=== PATIENT | male | born 1950 | race Caucasian/White ===

== ENCOUNTER 2023-02-24 15:29 | Emergency (ER) | payer MEDICARE ==
[2023-02-24 15:52] LABS: BASOPHILS ABSOLUTE AUTO 0.08 K/uL (0.00-0.10); BASOPHILS PERCENT AUTO 0.6 % (0.1-1.3); EOSINOPHILS ABSOLUTE AUTO 0.44 K/uL (0.00-0.40); EOSINOPHILS PERCENT AUTO 3.5 % (0.0-5.4); HEMATOCRIT 46.9 % (38.4-49.7); HEMOGLOBIN 16.2 g/dL (12.9-16.9); IMMATURE GRAN ABSOLUTE AUTO 0.04 K/uL (0.00-0.23); IMMATURE GRAN PERCENT AUTO 0.3 % (0.0-0.7); LYMPHOCYTES ABSOLUTE AUTO 4.52 K/uL (0.8-3.3); MEAN CORPUSCULAR HEMOGLOBIN 30.8 pg (31.6-35.5); MEAN CORPUSCULAR HGB CONC 34.5 g/dL (31.6-35.5); MEAN CORPUSCULAR VOLUME 89.2 fL (81.4-99.0); MONOCYTES ABSOLUTE AUTO 0.97 K/uL (0.20-0.90); MONOCYTES PERCENT AUTO 7.7 % (3.3-12.6); NEUTROPHILS ABSOLUTE AUTO 6.51 K/uL (1.0-7.6); NEUTROPHILS PERCENT AUTO 51.9 % (40.0-78.1); PLATELET COUNT,PLT 298 K/uL (130-375); RED BLOOD CELL COUNT 5.26 M/uL (4.14-5.76); WHITE BLOOD CELL COUNT,WBC 12.6 K/uL (3.2-11.0)
[2023-02-24 16:11] LABS: BLOOD UREA NITROGEN,BUN 11 mg/dL (7-18); CALCIUM 8.7 mg/dL (8.5-10.1); CARBON DIOXIDE,CO2 21 mmol/L (21-32); CHLORIDE,CL 101 mmol/L (100-108); CREATININE 1.3 mg/dL (0.8-1.3); ESTIMATED GFR 59 mL/min (>60); GLUCOSE RANDOM 131 mg/dL (74-106); POTASSIUM,K 3.2 mmol/L (3.6-5.2); SODIUM,NA 136 mmol/L (140-148)
[2023-02-24 16:13] LABS: ANION GAP 17.2 mmol/L (5.0-14.0)
== END 2023-02-24 18:31 | disposition home or self-care (01) ==
LOC: JP.ED 15:29
DX: S42.212A Unspecified displaced fracture of surgical neck of left humerus, initial encounter for closed fracture (principal); I10 Essential (primary) hypertension; W11.XXXA Fall on and from ladder, initial encounter
CPT/HCPCS: 36415; 73030-26-LT; 73030-LT; 80048; 85025; 99283

== ENCOUNTER 2024-01-14 13:40 | Emergency (ER) | payer MEDICARE ==
[2024-01-14 14:53] LABS: BASE EXCESS VENOUS 0.9 mm/L; BASOPHILS ABSOLUTE AUTO 0.04 K/uL (0.00-0.10); BASOPHILS PERCENT AUTO 0.4 % (0.1-1.3); BICARBONATE,VENOUS 23.6 mmol/L; EOSINOPHILS ABSOLUTE AUTO 0.08 K/uL (0.00-0.40); EOSINOPHILS PERCENT AUTO 0.8 % (0.0-5.4); HEMATOCRIT 37.9 % (38.4-49.7); HEMOGLOBIN 13.2 g/dL (12.9-16.9); IMMATURE GRAN ABSOLUTE AUTO 0.03 K/uL (0.00-0.23); IMMATURE GRAN PERCENT AUTO 0.3 % (0.0-0.7); LYMPHOCYTES ABSOLUTE AUTO 1.64 K/uL (0.8-3.3); LYMPHOCYTES PERCENT AUTO 15.8 % (11.4-47.7); MEAN CORPUSCULAR HEMOGLOBIN 28.8 pg (31.6-35.5); MEAN CORPUSCULAR HGB CONC 34.8 g/dL (31.6-35.5); MEAN CORPUSCULAR VOLUME 82.8 fL (81.4-99.0); METHEMOGLOBIN 0.8 %; MONOCYTES ABSOLUTE AUTO 0.75 K/uL (0.20-0.90); MONOCYTES PERCENT AUTO 7.2 % (3.3-12.6); NEUTROPHILS ABSOLUTE AUTO 7.86 K/uL (1.0-7.6); NEUTROPHILS PERCENT AUTO 75.5 % (40.0-78.1); O2 SATURATION VENOUS 55.8; OXYHEMOGLOBIN 53.1 %; PCO2 VENOUS 33.1 mm/Hg; PH,VENOUS 7.467 (7.350-7.450); PLATELET COUNT,PLT 329 K/uL (130-375); RED BLOOD CELL COUNT 4.58 M/uL (4.14-5.76); TOTAL HEMOGLOBIN 13.7 g/dL (13.5-18.0); WHITE BLOOD CELL COUNT,WBC 10.4 K/uL (3.2-11.0)
[2024-01-14 14:55] LABS: PO2 VENOUS 29.1 mm/Hg
[2024-01-14 14:56] LABS: CORONAVIRUS COVID-19 NAA NEGATIVE (NEGATIVE); INFLUENZA A NAA NEGATIVE (NEGATIVE); INFLUENZA B NAA NEGATIVE (NEGATIVE); RESPIRATORY SYNCYTIAL VIR NAA NEGATIVE (NEGATIVE)
[2024-01-14] MEDS: Albuterol/Ipratropium 3.0-0.5 MG/3 ML Neb Soln NEB ONE (15:18)
[2024-01-14 15:25] LABS: A/G RATIO 0.8 (1.2-2.2); ALANINE AMINOTRANSFERASE,ALT 24 U/L (12-78); ALKALINE PHOSPHATASE 120 U/L (46-116); ASPARTATE AMNIOTRANSFERASE,AST 14 U/L (15-37); BILIRUBIN TOTAL 0.5 mg/dL (0.2-1.0); BLOOD UREA NITROGEN,BUN 12 mg/dL (7-18); CALCIUM 9.5 mg/dL (8.5-10.1); CARBON DIOXIDE,CO2 25 mmol/L (21-32); CHLORIDE,CL 105 mmol/L (100-108); EST CRCL DRUG DOSING (CG) 67.75 mL/min; ESTIMATED GFR 80 mL/min (>60); GLUCOSE RANDOM 106 mg/dL (74-106); POTASSIUM,K 3.9 mmol/L (3.6-5.2); PRO B-TYPE NATRIUR PEPT,BNPPRO 3172 pg/mL (5-125); SODIUM,NA 139 mmol/L (140-148)
[2024-01-14 15:32] LABS: ANION GAP 12.9 mmol/L (5.0-14.0)
[2024-01-14] MEDS ORDERED: Sodium Chloride 0.9% 500 ML IV ONE (16:25)
[2024-01-14] MEDS: Sodium Chloride 0.9% 100 ML IV SCH (17:03)
[2024-01-14] MEDS: Iopamidol 755 Mg/ML 100 ML Bottle IV SCH (17:03)
[2024-01-14] MEDS: Furosemide 20 MG/2 ML VIAL IVPUSH ONE (18:22)
== END 2024-01-14 19:10 | disposition home or self-care (01) ==
LOC: JP.ED 13:40
DX: J43.9 Emphysema, unspecified (principal); R91.8 Other nonspecific abnormal finding of lung field; I10 Essential (primary) hypertension; F17.210 Nicotine dependence, cigarettes, uncomplicated; Z79.899 Other long term (current) drug therapy
CPT/HCPCS: 0241U; 36415; 71045; 71275; 80053; 82803; 83605; 83880; 84145; 84484; 85025; 85379; 93005; 96374; 99285; J1940; J3490; Q9967; J7620

== ENCOUNTER 2024-02-05 16:13 | Emergency (ER) | payer MEDICARE ==
[~2024-02-05 16:13] MED LIST: Apixaban 5 MG Tab PO SCH
[2024-02-05 16:56] LABS: BASOPHILS ABSOLUTE AUTO 0.04 K/uL (0.00-0.10); BASOPHILS PERCENT AUTO 0.4 % (0.1-1.3); EOSINOPHILS ABSOLUTE AUTO 0.12 K/uL (0.00-0.40); EOSINOPHILS PERCENT AUTO 1.2 % (0.0-5.4); HEMOGLOBIN 13.5 g/dL (12.9-16.9); IMMATURE GRAN ABSOLUTE AUTO 0.05 K/uL (0.00-0.23); IMMATURE GRAN PERCENT AUTO 0.5 % (0.0-0.7); LYMPHOCYTES PERCENT AUTO 16.4 % (11.4-47.7); MEAN CORPUSCULAR HEMOGLOBIN 28.9 pg (31.6-35.5); MEAN CORPUSCULAR HGB CONC 33.8 g/dL (31.6-35.5); MEAN CORPUSCULAR VOLUME 85.7 fL (81.4-99.0); MONOCYTES PERCENT AUTO 8.2 % (3.3-12.6); NEUTROPHILS ABSOLUTE AUTO 7.17 K/uL (1.0-7.6); NEUTROPHILS PERCENT AUTO 73.3 % (40.0-78.1); PLATELET COUNT,PLT 279 K/uL (130-375); RED BLOOD CELL COUNT 4.67 M/uL (4.14-5.76); WHITE BLOOD CELL COUNT,WBC 9.8 K/uL (3.2-11.0)
[2024-02-05 17:10] LABS: CALCIUM 9.5 mg/dL (8.5-10.1); CREATININE 1.1 mg/dL (0.8-1.3); EST CRCL DRUG DOSING (CG) 59.59 mL/min; POTASSIUM,K 3.6 mmol/L (3.6-5.2)
[2024-02-05] MEDS: Sodium Chloride 0.9% 500 ML IV ONE ×2 (17:18→17:48)
[2024-02-05] MEDS: Sodium Chloride 0.9% 10 ML Syringe FLUSH PRN (17:18)
[2024-02-05] MEDS: Diltiazem 25 MG/5 ML SDV IVPUSH ONE ×2 (17:19→17:48)
[2024-02-05 17:23] LABS: ANION GAP 14.6 mmol/L (5.0-14.0)
[2024-02-05] MEDS: Diltiazem 120 MG Cap.CD PO ONE (18:13)
[2024-02-05] MEDS: Apixaban 5 MG Tab PO ONE (18:50)
[2024-02-05] MEDS: Apixaban 5 MG Tab ONE (18:51)
== END 2024-02-05 19:01 | disposition home or self-care (01) ==
LOC: JP.ED 16:13
DX: I48.91 Unspecified atrial fibrillation (principal); I10 Essential (primary) hypertension; F17.210 Nicotine dependence, cigarettes, uncomplicated; Z79.899 Other long term (current) drug therapy
CPT/HCPCS: 36415; 80048; 85025; 96361; 96374; 99284; 99285-25; A9270-GY; J3490; J7040

== ENCOUNTER 2024-02-11 13:19 | Emergency (ER) | payer MEDICARE ==
[2024-02-11 13:56] LABS: BASOPHILS PERCENT AUTO 0.1 % (0.1-1.3); HEMOGLOBIN 15.3 g/dL (12.9-16.9); IMMATURE GRAN ABSOLUTE AUTO 0.12 K/uL (0.00-0.23); IMMATURE GRAN PERCENT AUTO 0.6 % (0.0-0.7); LYMPHOCYTES ABSOLUTE AUTO 0.66 K/uL (0.8-3.3); LYMPHOCYTES PERCENT AUTO 3.4 % (11.4-47.7); MEAN CORPUSCULAR VOLUME 85.2 fL (81.4-99.0); MONOCYTES ABSOLUTE AUTO 1.15 K/uL (0.20-0.90); MONOCYTES PERCENT AUTO 5.9 % (3.3-12.6); NEUTROPHILS ABSOLUTE AUTO 17.49 K/uL (1.0-7.6); PLATELET COUNT,PLT 305 K/uL (130-375); RED BLOOD CELL COUNT 5.28 M/uL (4.14-5.76); WHITE BLOOD CELL COUNT,WBC 19.4 K/uL (3.2-11.0)
[2024-02-11 13:57] LABS: BASOPHILS ABSOLUTE AUTO 0.02 K/uL (0.00-0.10)
[2024-02-11 14:03] LABS: INR 1.1; PROTHROMBIN TIME 11.6 sec (9.2-10.6)
[2024-02-11] MEDS: Diltiazem 25 MG/5 ML SDV IVPUSH ONE (14:07)
[2024-02-11 14:18] LABS: A/G RATIO 0.8 (1.2-2.2); ALANINE AMINOTRANSFERASE,ALT 58 U/L (12-78); ALBUMIN 3.5 g/dL (3.4-5.0); ALKALINE PHOSPHATASE 150 U/L (46-116); ASPARTATE AMNIOTRANSFERASE,AST 30 U/L (15-37); BILIRUBIN TOTAL 0.8 mg/dL (0.2-1.0); BLOOD UREA NITROGEN,BUN 19 mg/dL (7-18); CALCIUM 9.7 mg/dL (8.5-10.1); CARBON DIOXIDE,CO2 26 mmol/L (21-32); CHLORIDE,CL 101 mmol/L (100-108); CREATININE 1.1 mg/dL (0.8-1.3); EST CRCL DRUG DOSING (CG) 59.59 mL/min; ESTIMATED GFR 72 mL/min (>60); GLUCOSE RANDOM 139 mg/dL (74-106); MAGNESIUM 2.1 mg/dL (1.8-2.4); POTASSIUM,K 3.5 mmol/L (3.6-5.2); PRO B-TYPE NATRIUR PEPT,BNPPRO 1621 pg/mL (5-125); PROTEIN TOTAL,TP 7.7 g/dL (6.4-8.2); SODIUM,NA 138 mmol/L (140-148); TROPONIN I HIGH SENSITIVITY 14.3 pg/mL (<=60.3)
[2024-02-11 14:19] LABS: ANION GAP 14.5 mmol/L (5.0-14.0)
[2024-02-11 14:29] LABS: APPEARANCE,URINE CLOUDY (CLEAR); BILIRUBIN,URINE NEGATIVE (NEGATIVE); COLOR,URINE YELLOW (YELLOW); GLUCOSE,URINE NEGATIVE (NEGATIVE); KETONES,URINE NEGATIVE (NEGATIVE); LEUKOCYTE ESTERASE,URINE NEGATIVE (NEGATIVE); NITRITE,URINE NEGATIVE (NEGATIVE); OCCULT BLOOD,URINE NEGATIVE (NEGATIVE); PROTEIN,URINE NEGATIVE (NEGATIVE)
[2024-02-11 14:37] LABS: BACTERIA,URINE FEW; EPITHELIAL CELLS,URINE RARE; MUCUS,URINE RARE; RBC,URINE 0-5 (0-5); WBC,URINE 0-5 (0-5)
[2024-02-11 14:38] LABS: AMORPHOUS SEDIMENT,URINE MODERATE; AMPHETAMINES SCREEN, URINE NEGATIVE (NEGATIVE); BARBITURATE SCREEN,URINE NEGATIVE (NEGATIVE); BENZODIAZEPINES SCREEN,URINE NEGATIVE (NEGATIVE); METHADONE SCREEN, URINE NEGATIVE (NEGATIVE); METHAMPHETAMINES SCREEN, URINE NEGATIVE (NEGATIVE); OXYCODONE SCREEN,URINE NEGATIVE (NEGATIVE); PROPOXYPHENE SCREEN,URINE NEGATIVE (NEGATIVE); THC SCREEN,URINE 50 NG/ML NEGATIVE (NEGATIVE)
[2024-02-11] MEDS: Iopamidol 612 MG/ML 100 ML Bottle IV SCH (15:38)
[2024-02-11] MEDS: Sodium Chloride 0.9% 60 ML IV SCH (15:38)
== END 2024-02-11 17:06 | disposition home or self-care (01) ==
LOC: JP.ED 13:19
DX: I48.20 Chronic atrial fibrillation, unspecified (principal); R22.2 Localized swelling, mass and lump, trunk; I10 Essential (primary) hypertension; Z79.899 Other long term (current) drug therapy
CPT/HCPCS: 36415; 71260; 80053; 80305; 80307; 81001; 83605; 83735; 83880; 84443; 84484; 85025; 85379; 85610; 93005; 93010; 96374; 99284; 99285; J3490; Q9967

== ENCOUNTER 2024-02-25 11:09 | Emergency (ER) | payer MEDICARE ==
[2024-02-25 11:34] LABS: BASOPHILS ABSOLUTE AUTO 0.04 K/uL (0.00-0.10); BASOPHILS PERCENT AUTO 0.3 % (0.1-1.3); EOSINOPHILS ABSOLUTE AUTO 0.05 K/uL (0.00-0.40); EOSINOPHILS PERCENT AUTO 0.4 % (0.0-5.4); HEMATOCRIT 41.4 % (38.4-49.7); IMMATURE GRAN ABSOLUTE AUTO 0.08 K/uL (0.00-0.23); IMMATURE GRAN PERCENT AUTO 0.6 % (0.0-0.7); LYMPHOCYTES ABSOLUTE AUTO 1.22 K/uL (0.8-3.3); LYMPHOCYTES PERCENT AUTO 8.9 % (11.4-47.7); MEAN CORPUSCULAR HEMOGLOBIN 28.8 pg (31.6-35.5); MEAN CORPUSCULAR HGB CONC 33.8 g/dL (31.6-35.5); MEAN CORPUSCULAR VOLUME 85.2 fL (81.4-99.0); MONOCYTES PERCENT AUTO 5.8 % (3.3-12.6); NEUTROPHILS ABSOLUTE AUTO 11.52 K/uL (1.0-7.6); PLATELET COUNT,PLT 267 K/uL (130-375); RED BLOOD CELL COUNT 4.86 M/uL (4.14-5.76); WHITE BLOOD CELL COUNT,WBC 13.7 K/uL (3.2-11.0)
[2024-02-25] MEDS ORDERED: Metoprolol Tartrate 5 MG in Sodium Chloride 0.9% 50 ML IV ONE (11:40)
[2024-02-25 11:47] LABS: INR 1.2; PROTHROMBIN TIME 12.1 sec (9.2-10.6)
[2024-02-25] MEDS: Metoprolol Tartrate 5 MG/5 ML SDV IV ONE (11:47)
[2024-02-25] MEDS: Sodium Chloride 0.9% 10 ML Syringe FLUSH PRN (11:48)
[2024-02-25 11:56] LABS: A/G RATIO 0.7 (1.2-2.2); ALANINE AMINOTRANSFERASE,ALT 47 U/L (12-78); ALBUMIN 2.8 g/dL (3.4-5.0); ALKALINE PHOSPHATASE 202 U/L (46-116); ASPARTATE AMNIOTRANSFERASE,AST 23 U/L (15-37); BILIRUBIN TOTAL 0.8 mg/dL (0.2-1.0); BLOOD UREA NITROGEN,BUN 12 mg/dL (7-18); CALCIUM 9.3 mg/dL (8.5-10.1); CARBON DIOXIDE,CO2 24 mmol/L (21-32); CHLORIDE,CL 97 mmol/L (100-108); ESTIMATED GFR 80 mL/min (>60); GLUCOSE RANDOM 114 mg/dL (74-106); POTASSIUM,K 3.4 mmol/L (3.6-5.2); PRO B-TYPE NATRIUR PEPT,BNPPRO 2741 pg/mL (5-125); PROTEIN TOTAL,TP 6.9 g/dL (6.4-8.2); SODIUM,NA 134 mmol/L (140-148)
[2024-02-25] MEDS: Furosemide 40 MG/4 ML VIAL IVPUSH ONE (11:56)
[2024-02-25 11:57] LABS: ANION GAP 16.4 mmol/L (5.0-14.0)
[2024-02-25 12:54] LABS: APPEARANCE,URINE CLEAR (CLEAR); BILIRUBIN,URINE NEGATIVE (NEGATIVE); COLOR,URINE YELLOW (YELLOW); GLUCOSE,URINE NEGATIVE (NEGATIVE); KETONES,URINE NEGATIVE (NEGATIVE); LEUKOCYTE ESTERASE,URINE NEGATIVE (NEGATIVE); NITRITE,URINE NEGATIVE (NEGATIVE); OCCULT BLOOD,URINE NEGATIVE (NEGATIVE); PROTEIN,URINE NEGATIVE (NEGATIVE); UROBILINOGEN,URINE 0.2 EU/dL (0.2-1.0)
[2024-02-25 13:09] LABS: AMORPHOUS SEDIMENT,URINE NOT SEEN; BACTERIA,URINE RARE; EPITHELIAL CELLS,URINE NOT SEEN; MUCUS,URINE NOT SEEN; RBC,URINE 0-5 (0-5); WBC,URINE 0-5 (0-5)
[2024-02-25] MEDS: Potassium Chloride 20 MEQ Tab.ER PO ONE (14:13)
[2024-02-25] MEDS: Diltiazem 25 MG/5 ML SDV IVPUSH ONE (14:14)
== END 2024-02-25 16:04 | disposition home or self-care (01) ==
LOC: JP.ED 11:09
DX: I48.91 Unspecified atrial fibrillation (principal); I11.0 Hypertensive heart disease with heart failure; I50.42 Chronic combined systolic (congestive) and diastolic (congestive) heart failure; Z91.148 Patient's other noncompliance with medication regimen for other reason; Z79.899 Other long term (current) drug therapy
CPT/HCPCS: 36415; 71045; 80053; 81001; 83605; 83880; 84484; 85025; 85610; 93005; 93010; 96374; 96375; 99284; 99285; A9270; J1940; J3490

== ENCOUNTER 2024-03-02 05:25 | Emergency (ER) | payer MEDICARE ==
[2024-03-02 05:41] LABS: BASOPHILS ABSOLUTE AUTO 0.04 K/uL (0.00-0.10); BASOPHILS PERCENT AUTO 0.4 % (0.1-1.3); EOSINOPHILS ABSOLUTE AUTO 0.07 K/uL (0.00-0.40); EOSINOPHILS PERCENT AUTO 0.7 % (0.0-5.4); HEMATOCRIT 41.6 % (38.4-49.7); HEMOGLOBIN 13.9 g/dL (12.9-16.9); IMMATURE GRAN ABSOLUTE AUTO 0.05 K/uL (0.00-0.23); IMMATURE GRAN PERCENT AUTO 0.5 % (0.0-0.7); LYMPHOCYTES ABSOLUTE AUTO 1.11 K/uL (0.8-3.3); LYMPHOCYTES PERCENT AUTO 10.5 % (11.4-47.7); MEAN CORPUSCULAR HEMOGLOBIN 28.7 pg (31.6-35.5); MEAN CORPUSCULAR HGB CONC 33.4 g/dL (31.6-35.5); MEAN CORPUSCULAR VOLUME 85.8 fL (81.4-99.0); MONOCYTES ABSOLUTE AUTO 0.84 K/uL (0.20-0.90); MONOCYTES PERCENT AUTO 7.9 % (3.3-12.6); NEUTROPHILS ABSOLUTE AUTO 8.49 K/uL (1.0-7.6); PLATELET COUNT,PLT 278 K/uL (130-375); RED BLOOD CELL COUNT 4.85 M/uL (4.14-5.76); WHITE BLOOD CELL COUNT,WBC 10.6 K/uL (3.2-11.0)
[2024-03-02] MEDS: Adenosine 6 MG/2 ML SDV IVPUSH ONE ×2 (05:57→06:07)
[2024-03-02 06:07] LABS: CALCIUM 9.3 mg/dL (8.5-10.1); EST CRCL DRUG DOSING (CG) 64.6 mL/min; POTASSIUM,K 3.2 mmol/L (3.6-5.2); TROPONIN I HIGH SENSITIVITY 12.2 pg/mL (<=60.3)
[2024-03-02 06:13] LABS: ANION GAP 15.2 mmol/L (5.0-14.0)
[2024-03-02] MEDS ORDERED: Propofol 200 MG/20 ML SDV ONE (06:37)
== END 2024-03-02 07:40 | disposition home or self-care (01) ==
LOC: JP.ED 05:25
DX: I47.10 Supraventricular tachycardia, unspecified (principal); I10 Essential (primary) hypertension; F17.210 Nicotine dependence, cigarettes, uncomplicated; Z79.899 Other long term (current) drug therapy
CPT/HCPCS: 36415; 80048; 84484; 85025; 92960; 93005; 93010; 96374; 99156; 99284; 99285-25; J0153; J2704

== ENCOUNTER 2024-03-05 10:45 | Emergency (ER) | payer MEDICARE ==
[2024-03-05 11:20] LABS: BASOPHILS ABSOLUTE AUTO 0.04 K/uL (0.00-0.10); BASOPHILS PERCENT AUTO 0.3 % (0.1-1.3); EOSINOPHILS ABSOLUTE AUTO 0.05 K/uL (0.00-0.40); EOSINOPHILS PERCENT AUTO 0.4 % (0.0-5.4); HEMATOCRIT 40.8 % (38.4-49.7); HEMOGLOBIN 13.6 g/dL (12.9-16.9); IMMATURE GRAN ABSOLUTE AUTO 0.06 K/uL (0.00-0.23); IMMATURE GRAN PERCENT AUTO 0.5 % (0.0-0.7); LYMPHOCYTES ABSOLUTE AUTO 1.43 K/uL (0.8-3.3); LYMPHOCYTES PERCENT AUTO 12.3 % (11.4-47.7); MEAN CORPUSCULAR HEMOGLOBIN 28.4 pg (31.6-35.5); MEAN CORPUSCULAR HGB CONC 33.3 g/dL (31.6-35.5); MEAN CORPUSCULAR VOLUME 85.2 fL (81.4-99.0); MONOCYTES ABSOLUTE AUTO 0.92 K/uL (0.20-0.90); MONOCYTES PERCENT AUTO 7.9 % (3.3-12.6); NEUTROPHILS ABSOLUTE AUTO 9.14 K/uL (1.0-7.6); NEUTROPHILS PERCENT AUTO 78.6 % (40.0-78.1); PLATELET COUNT,PLT 270 K/uL (130-375); RED BLOOD CELL COUNT 4.79 M/uL (4.14-5.76); WHITE BLOOD CELL COUNT,WBC 11.6 K/uL (3.2-11.0)
[2024-03-05 11:44] LABS: ANION GAP 13.2 mmol/L (5.0-14.0); CALCIUM 9.2 mg/dL (8.5-10.1); EST CRCL DRUG DOSING (CG) 64.6 mL/min; POTASSIUM,K 3.2 mmol/L (3.6-5.2); TROPONIN I HIGH SENSITIVITY 24.2 pg/mL (<=60.3)
[2024-03-05] MEDS ORDERED: Propofol 200 MG/20 ML SDV ONE (12:12)
[2024-03-05] MEDS: Metoprolol Succinate 25 MG Tab.ER PO ONE (13:18)
[2024-03-05] MEDS: Sodium Chloride 0.9% 500 ML IV ONE ×2 (13:18→13:19)
== END 2024-03-05 13:31 | disposition home or self-care (01) ==
LOC: JP.ED 10:45
DX: I47.10 Supraventricular tachycardia, unspecified (principal); F17.210 Nicotine dependence, cigarettes, uncomplicated; Z79.899 Other long term (current) drug therapy
CPT/HCPCS: 36415; 80048; 84484; 85025; 92960; 93005; 99285; A9270; J2704; J7040

== ENCOUNTER 2024-03-17 11:23 | Inpatient (IN) | payer MEDICARE ==
[2024-03-17 11:41] LABS: BASOPHILS ABSOLUTE AUTO 0.04 K/uL (0.00-0.10); BASOPHILS PERCENT AUTO 0.2 % (0.1-1.3); EOSINOPHILS ABSOLUTE AUTO 0.08 K/uL (0.00-0.40); EOSINOPHILS PERCENT AUTO 0.5 % (0.0-5.4); HEMATOCRIT 38.9 % (38.4-49.7); HEMOGLOBIN 13.1 g/dL (12.9-16.9); IMMATURE GRAN ABSOLUTE AUTO 0.09 K/uL (0.00-0.23); IMMATURE GRAN PERCENT AUTO 0.5 % (0.0-0.7); LYMPHOCYTES ABSOLUTE AUTO 1.23 K/uL (0.8-3.3); LYMPHOCYTES PERCENT AUTO 7.2 % (11.4-47.7); MEAN CORPUSCULAR HEMOGLOBIN 28.4 pg (31.6-35.5); MEAN CORPUSCULAR HGB CONC 33.7 g/dL (31.6-35.5); MEAN CORPUSCULAR VOLUME 84.4 fL (81.4-99.0); MONOCYTES PERCENT AUTO 7.6 % (3.3-12.6); NEUTROPHILS ABSOLUTE AUTO 14.31 K/uL (1.0-7.6); PLATELET COUNT,PLT 338 K/uL (130-375); RED BLOOD CELL COUNT 4.61 M/uL (4.14-5.76); WHITE BLOOD CELL COUNT,WBC 17.1 K/uL (3.2-11.0)
[2024-03-17 11:57] LABS: BLOOD UREA NITROGEN,BUN 16 mg/dL (7-18); CALCIUM 9.6 mg/dL (8.5-10.1); CARBON DIOXIDE,CO2 30 mmol/L (21-32); CHLORIDE,CL 97 mmol/L (100-108); ESTIMATED GFR 80 mL/min (>60); GLUCOSE RANDOM 103 mg/dL (74-106); SODIUM,NA 135 mmol/L (140-148)
[2024-03-17] MEDS ORDERED: Sodium Chloride 0.9% 10 ML Syringe FLUSH PRN (13:41)
[2024-03-17] MEDS ORDERED: Ondansetron 4 MG/2 ML SDV IV PRN (13:41)
[2024-03-17] MEDS ORDERED: Acetaminophen 325 MG Tab PO PRN (13:41)
[2024-03-17] MEDS: Sodium Chloride 0.9% 1,000 ML IV SCH (14:24)
[2024-03-17] MEDS: cefTRIAXone 1 GM in Sodium Chloride 0.9% 50 ML IV SCH (14:27)
[2024-03-17] MEDS: Sodium Chloride 0.9% 80 ML IV STA (14:45)
[2024-03-17] MEDS: Iopamidol 612 MG/ML 100 ML Bottle IV STA ×2 (14:45→16:08)
[2024-03-17] MEDS: Sodium Chloride 0.9% 10 ML Syringe FLUSH STA (14:46)
[2024-03-17] MEDS: Azithromycin 500 MG in Sodium Chloride 0.9% 250 ML IV SCH (15:33)
[2024-03-17 15:58] LABS: APPEARANCE,URINE CLEAR (CLEAR); BACTERIA,URINE RARE; BILIRUBIN,URINE NEGATIVE (NEGATIVE); COLOR,URINE YELLOW (YELLOW); EPITHELIAL CELLS,URINE RARE; GLUCOSE,URINE NEGATIVE (NEGATIVE); KETONES,URINE NEGATIVE (NEGATIVE); LEUKOCYTE ESTERASE,URINE NEGATIVE (NEGATIVE); MUCUS,URINE FEW; NITRITE,URINE NEGATIVE (NEGATIVE); OCCULT BLOOD,URINE NEGATIVE (NEGATIVE); PROTEIN,URINE TRACE mg/dL (NEGATIVE); RBC,URINE 0-5 (0-5); UROBILINOGEN,URINE 0.2 EU/dL (0.2-1.0); WBC,URINE 0-5 (0-5)
[2024-03-17 15:59] LABS: AMORPHOUS SEDIMENT,URINE NOT SEEN
[2024-03-17] MEDS: Doxycycline 100 MG in Sodium Chloride 0.9% 100 ML IV SCH (19:05)
[2024-03-17] MEDS: Albuterol 0.083% 2.5 MG/3 ML Neb Soln NEB PRN (20:01)
[2024-03-17] MEDS: guaiFENesin/Dextromethorphan 100-10 MG/5 ML Soln 10 ML Cup PO PRN (20:01)
[2024-03-17] MEDS: Melatonin 3 MG Tab PO SCH (21:46)
[2024-03-17] MEDS: Sotalol 80 MG Tab PO SCH (21:46)
[2024-03-18] MEDS: Potassium Chloride 20 MEQ Tab.ER PO ONE ×3 (04:40→17:33)
[2024-03-18 05:26] LABS: HEMATOCRIT 37.6 % (38.4-49.7); HEMOGLOBIN 12.8 g/dL (12.9-16.9); MEAN CORPUSCULAR HEMOGLOBIN 28.3 pg (31.6-35.5); MEAN CORPUSCULAR VOLUME 83.2 fL (81.4-99.0); RED BLOOD CELL COUNT 4.52 M/uL (4.14-5.76); WHITE BLOOD CELL COUNT,WBC 18.4 K/uL (3.2-11.0)
[2024-03-18 05:49] LABS: A/G RATIO 0.7 (1.2-2.2); ALANINE AMINOTRANSFERASE,ALT 46 U/L (12-78); ALBUMIN 2.6 g/dL (3.4-5.0); ALKALINE PHOSPHATASE 223 U/L (46-116); ANION GAP 13.1 mmol/L (5.0-14.0); ASPARTATE AMNIOTRANSFERASE,AST 29 U/L (15-37); BILIRUBIN TOTAL 0.8 mg/dL (0.2-1.0); BLOOD UREA NITROGEN,BUN 14 mg/dL (7-18); CALCIUM 9.2 mg/dL (8.5-10.1); CARBON DIOXIDE,CO2 25 mmol/L (21-32); CHLORIDE,CL 96 mmol/L (100-108); CREATININE 0.9 mg/dL (0.8-1.3); EST CRCL DRUG DOSING (CG) 71.78 mL/min; ESTIMATED GFR 91 mL/min (>60); GLUCOSE RANDOM 112 mg/dL (74-106); MAGNESIUM 1.7 mg/dL (1.8-2.4); POTASSIUM,K 3.1 mmol/L (3.6-5.2); PROTEIN TOTAL,TP 6.6 g/dL (6.4-8.2); SODIUM,NA 131 mmol/L (140-148)
[2024-03-18] MEDS: Furosemide 20 MG/2 ML VIAL IVPUSH SCH (08:34)
[2024-03-18] MEDS: Diltiazem 180 MG Cap.CD PO SCH (08:34)
[2024-03-18] MEDS: Metoprolol Succinate 25 MG Tab.ER PO SCH (08:35)
[2024-03-18] MEDS: Multivitamins with Iron/Calcium/Folic Acid/Minerals Tab PO SCH (08:35)
[2024-03-18] MEDS: Lisinopril 5 MG Tab PO SCH (08:35)
[2024-03-18] MEDS: Magnesium Oxide 400 MG Tab PO SCH (08:42)
[2024-03-18] MEDS: Magnesium Sulfate/Water Premix 2 GM in Premix Bag 1 BAG IV SCH (10:32)
[2024-03-18 16:32] LABS: BODY FLUID TYPE THORACENTESIS FLUID
[2024-03-18 16:42] LABS: GLUCOSE,BODY FLUID 108 mg/dL; LACTATE DEHYDROGENASE,BODY FL 159 IU/L
[2024-03-18 16:43] LABS: PROTEIN,BODY FLUID 3.2 g/dL
[2024-03-18 16:54] LABS: BODY FLUID TYPE THORACENTESIS FLUID
[2024-03-18 17:09] LABS: CHOLESTEROL,BODY FLUID 57 mg/dL
[2024-03-18 17:20] LABS: WBC BODY FLUID 2305 /ul
[2024-03-18 17:21] LABS: MONONUCLEAR, BODY FLUID 87 %; POLYMORPHONUCLEAR, BODY FLUID 13 %; RBC,BODY FLUID 609 /ul
[2024-03-18] MEDS ORDERED: Nicotine Polacrilex 2 MG Gum CHEW PRN (17:42)
[2024-03-18] MEDS: Nicotine 7 MG/24 Hr Patch TRDERM SCH (17:57)
[2024-03-19] MEDS: oxyCODONE 5 MG Tab PO PRN (03:09)
[2024-03-19 05:17] LABS: HEMOGLOBIN 12.7 g/dL (12.9-16.9); MEAN CORPUSCULAR HEMOGLOBIN 28.1 pg (31.6-35.5); MEAN CORPUSCULAR HGB CONC 33.4 g/dL (31.6-35.5); MEAN CORPUSCULAR VOLUME 84.1 fL (81.4-99.0); RED BLOOD CELL COUNT 4.52 M/uL (4.14-5.76)
[2024-03-19 05:42] LABS: A/G RATIO 0.6 (1.2-2.2); ALANINE AMINOTRANSFERASE,ALT 46 U/L (12-78); ALBUMIN 2.5 g/dL (3.4-5.0); ALKALINE PHOSPHATASE 215 U/L (46-116); ASPARTATE AMNIOTRANSFERASE,AST 28 U/L (15-37); BILIRUBIN TOTAL 0.6 mg/dL (0.2-1.0); BLOOD UREA NITROGEN,BUN 19 mg/dL (7-18); CALCIUM 9.1 mg/dL (8.5-10.1); CARBON DIOXIDE,CO2 27 mmol/L (21-32); CHLORIDE,CL 100 mmol/L (100-108); CREATININE 0.9 mg/dL (0.8-1.3); EST CRCL DRUG DOSING (CG) 71.78 mL/min; ESTIMATED GFR 91 mL/min (>60); GLUCOSE RANDOM 99 mg/dL (74-106); MAGNESIUM 1.9 mg/dL (1.8-2.4); PROTEIN TOTAL,TP 6.4 g/dL (6.4-8.2); SODIUM,NA 134 mmol/L (140-148)
[2024-03-19] MEDS: Apixaban 5 MG Tab PO SCH (08:26)
[2024-03-19] MEDS ORDERED: Naloxone 0.4 MG/ML SDV IVPUSH PRN (09:52)
[2024-03-19] MEDS: Morphine 10 MG/0.5 ML Oral Syringe BUCCAL PRN (10:26)
[2024-03-19] MEDS: Acetylcysteine 20% 200 MG/ML 4 ML Nebulizer Soln SDV NEB SCH (13:00)
[2024-03-20 05:40] LABS: HEMATOCRIT 38.5 % (38.4-49.7); HEMOGLOBIN 12.6 g/dL (12.9-16.9); MEAN CORPUSCULAR HEMOGLOBIN 27.9 pg (31.6-35.5); MEAN CORPUSCULAR HGB CONC 32.7 g/dL (31.6-35.5); MEAN CORPUSCULAR VOLUME 85.2 fL (81.4-99.0); RED BLOOD CELL COUNT 4.52 M/uL (4.14-5.76); WHITE BLOOD CELL COUNT,WBC 20.3 K/uL (3.2-11.0)
[2024-03-20 06:01] LABS: CALCIUM 9.8 mg/dL (8.5-10.1); CREATININE 1.2 mg/dL (0.8-1.3); EST CRCL DRUG DOSING (CG) 53.83 mL/min; POTASSIUM,K 4.2 mmol/L (3.6-5.2)
[2024-03-20 06:04] LABS: ANION GAP 15.2 mmol/L (5.0-14.0)
[2024-03-20] MEDS: Levofloxacin/Dextrose 5%-Water 750 MG in Premix Bag 1 BAG IV SCH (12:59)
[2024-03-21] MEDS: Morphine 10 MG/0.5 ML Oral Syringe BUCCAL PRN (01:10)
[2024-03-21 05:41] LABS: HEMATOCRIT 37.8 % (38.4-49.7); HEMOGLOBIN 12.7 g/dL (12.9-16.9); MEAN CORPUSCULAR HEMOGLOBIN 28.4 pg (31.6-35.5); MEAN CORPUSCULAR HGB CONC 33.6 g/dL (31.6-35.5); MEAN CORPUSCULAR VOLUME 84.6 fL (81.4-99.0); RED BLOOD CELL COUNT 4.47 M/uL (4.14-5.76); WHITE BLOOD CELL COUNT,WBC 18.4 K/uL (3.2-11.0)
[2024-03-21 05:55] LABS: CALCIUM 9.7 mg/dL (8.5-10.1); CREATININE 1.1 mg/dL (0.8-1.3); EST CRCL DRUG DOSING (CG) 58.73 mL/min; POTASSIUM,K 4.1 mmol/L (3.6-5.2)
[2024-03-21 06:01] LABS: ANION GAP 13.1 mmol/L (5.0-14.0)
[2024-03-22] MEDS: Acetylcysteine 20% 200 MG/ML 4 ML Nebulizer Soln SDV NEB SCH (11:14)
[2024-03-22] MEDS: Levofloxacin 250 MG Tab PO SCH (12:42)
[2024-03-23] MEDS: Polyethylene Glycol 3350 Powder 17 GM Packet PO PRN (06:07)
[2024-03-23] MEDS: LORazepam 0.5 MG Tab PO PRN (13:31)
[2024-03-23] MEDS: guaiFENesin 600 MG Tab.ER PO SCH (15:58)
== END 2024-03-24 09:55 | disposition hospice, home (50) | DRG 194 ==
LOC: JP.FAMCL 11:23 → JP.MS 13:34
PROVIDERS: ADMIT Family Medicine; ATTEND Internal Medicine
PROC: 0W993ZZ Drainage of Right Pleural Cavity, Percutaneous Approach (ICD-10-PCS; principal; 2024-03-18)
DX: J18.9 Pneumonia, unspecified organism (principal); I87.1 Compression of vein; J44.0 Chronic obstructive pulmonary disease with (acute) lower respiratory infection; J91.8 Pleural effusion in other conditions classified elsewhere; I48.91 Unspecified atrial fibrillation; G47.30 Sleep apnea, unspecified; F32.A Depression, unspecified; H54.7 Unspecified visual loss; Z66 Do not resuscitate; I48.0 Paroxysmal atrial fibrillation; R91.8 Other nonspecific abnormal finding of lung field; Z51.5 Encounter for palliative care; Z79.899 Other long term (current) drug therapy; Z87.81 Personal history of (healed) traumatic fracture
CPT/HCPCS: 32555; 36415; 71046; 71046-26; 71260; 71260-26; 80048; 80053; 81001; 82945; 83615; 83735; 84157; 84311; 85025; 85027; 87040; 87070; 87205; 88112; 88305; 89050; 94640; 94667; 94668; 97110-GP; 97161-GP; 99222; 99232; 99233; 99239; A9270-GY; J0456; J0696; J1940; J1956; J3475; J3490; J7030; J7050; Q9967